=== PATIENT | female | born 1965 | race Two or more races ===

== ENCOUNTER 2018-05-01 11:35 | Emergency (ER) | payer MEDICAID, OTHER ==
[~2018-05-01] VITALS: Ht 160 cm; Wt 76.2 kg
[2018-05-01] MEDS ORDERED: DEXAMETHASONE SOD PHOS 10MG/1ML VIAL INJ IV ONE (12:45)
[2018-05-01] MEDS ORDERED: KETOROLAC TROMETH 30 MG/ML 1ML VIAL IV ONE (12:45)
[2018-05-01 13:05] LABS: Basophils # (auto) 0 uL; Basophils % (auto) 0.1 % (0.0-2.0); Eosinophils # (auto) 0 uL; Eosinophils % (auto) 0.2 % (0.0-7.0); Hematocrit 37.2 % (36.0-46.0); Hemoglobin 12.7 g/dL (12.2-16.2); Lymphocytes # (auto) 1.3 uL; Lymphocytes % (auto) 14.6 % (10.0-50.0); Mean Corpuscular Hemoglobin 31.5 pg (28.0-32.0); Mean Corpuscular Hgb Conc. 34.1 g/dL (32.0-36.0); Mean Corpuscular Volume 92.3 fL (80.0-100.0); Monocytes # (auto) 0.3 uL; Neutrophils # (auto) 7.4 uL; Neutrophils % (auto) 82.1 % (37.0-80.0); Platelet Count (auto) 200 10^3/uL (140-450); Red Blood Cells 4.03 10^6/uL (4.0-5.20); Red Cell Distribution Width 13.5 % (11.8-14.3)
[2018-05-01 13:26] LABS: Calcium 7.8 mg/dL (8.5-10.1)
[2018-05-01 13:30] LABS: Albumin 3.5 g/dL (3.4-5.0); BUN/Creatinine Ratio 20.8
[2018-05-01 13:37] LABS: Bilirubin, Total 0.5 mg/dL (0.2-1.0)
[2018-05-01 14:22] LABS: Urine Amorphous Crystal FEW /hpf (None Seen); Urine Bacteria FEW /hpf (None Seen); Urine Blood Negative /uL (Negative); Urine Hyaline Cast FEW /lpf (0 - 2); Urine Mucus FEW (None Seen); Urine Specific Gravity 1.037 (1.001-1.035); Urine WBC 5 /hpf (0 - 5)
[2018-05-01 14:30] VITALS: BP 117/72
== END 2018-05-01 15:06 | disposition home or self-care (01) ==
LOC: ER 11:36
DX: R60.9 Edema, unspecified (principal); M25.532 Pain in left wrist; M25.531 Pain in right wrist; M79.10 Myalgia, unspecified site; N39.0 Urinary tract infection, site not specified; M79.632 Pain in left forearm; M79.631 Pain in right forearm; M25.572 Pain in left ankle and joints of left foot; M25.571 Pain in right ankle and joints of right foot
CPT/HCPCS: 36415; 80053; 81001; 82962; 85025; 96374; 96375; 99284; J1100; J1885

== ENCOUNTER 2019-06-03 13:36 | Emergency (ER) | payer SELFPAY ==
[~2019-06-03] VITALS: Ht 157.5 cm; Wt 70.8 kg
[2019-06-03 14:59] LABS: Basophils # (auto) 0 uL; Basophils % (auto) 0.6 % (0.0-2.0); Eosinophils # (auto) 0 uL; Eosinophils % (auto) 0.6 % (0.0-7.0); Hematocrit 37.9 % (36.0-46.0); Hemoglobin 12.8 g/dL (12.2-16.2); Lymphocytes # (auto) 1.4 uL; Mean Corpuscular Hemoglobin 31.2 pg (28.0-32.0); Mean Corpuscular Hgb Conc. 33.7 g/dL (32.0-36.0); Mean Corpuscular Volume 92.8 fL (80.0-100.0); Monocytes # (auto) 0.3 uL; Monocytes % (auto) 5.6 % (0.0-12.0); Neutrophils # (auto) 2.8 uL; Neutrophils % (auto) 63.2 % (37.0-80.0); Platelet Count (auto) 221 10^3/uL (140-450); Red Blood Cells 4.09 10^6/uL (4.0-5.20); Red Cell Distribution Width 13.8 % (11.8-14.3); White Blood Cell 4.5 10^3/uL (4.4-10.8)
[2019-06-03 15:20] LABS: Albumin 3.8 g/dL (3.4-5.0); Anion Gap 8 (5-15); Calcium 9.1 mg/dL (8.5-10.1); Carbon Dioxide 27 mmol/L (21-32); Chloride 93 mmol/L (98-107); Potassium 4.6 mmol/L (3.5-5.1); Sodium 128 mmol/L (136-145)
[2019-06-03 15:22] LABS: Alanine Aminotransferase 34 U/L (13-56); Aspartate Aminotransferase 19 U/L (15-37); Bilirubin, Total 0.8 mg/dL (0.2-1.0); GFR African American 91 mL/min; GFR Non-African American 75 mL/min; Total Protein 8.9 g/dL (6.4-8.2)
[2019-06-03 15:28] LABS: Alkaline Phosphatase 175 U/L (45-117)
[2019-06-03] MEDS ORDERED: InsuLIN REG 1unit/0.01ml Soln (100units/ml) IV ONE (15:30)
[2019-06-03 15:38] LABS: Glucose 600 mg/dL (74-106)
[2019-06-03 15:39] LABS: Blood Urea Nitrogen 17 mg/dL (7-18)
[2019-06-03 15:40] LABS: BUN/Creatinine Ratio 20.2
[2019-06-03 17:57] LABS: Urine Bacteria NONE SEEN /hpf (None Seen); Urine Blood Negative /uL (Negative); Urine Specific Gravity 1.023 (1.001-1.035); Urine WBC <1 /hpf (0 - 5)
[2019-06-03 18:06] VITALS: BP 141/78
== END 2019-06-03 18:06 | disposition home or self-care (01) ==
LOC: ER 13:36
DX: E11.65 Type 2 diabetes mellitus with hyperglycemia (principal); Z90.49 Acquired absence of other specified parts of digestive tract; Z98.51 Tubal ligation status
CPT/HCPCS: 36415; 80053; 81001; 82010; 82962; 84484; 85025; 93005; 96374; 99284; J1815